=== PATIENT | female | born 1945 | race African-American/Black ===

== ENCOUNTER 2019-05-15 15:41 | Emergency (ER) | payer OTHER ==
[~2019-05-15] VITALS: Ht 160 cm; Wt 86.2 kg
[2019-05-15] MEDS ORDERED: GINSENG100 MG PO (16:10)
[2019-05-15] MEDS ORDERED: NORVASC5 MG PO (16:10)
[2019-05-15 18:29] LABS: ABSOLUTE BASOPHILS 0.1 thou/uL (0.0-0.2); ABSOLUTE EOSINOPHILS 0.1 thou/uL (0.0-0.7); ABSOLUTE MONOCYTES 0.9 thou/uL (0.0-1.2); ABSOLUTE NEUTROPHILS 3.5 thou/uL (1.6-8.1); BASOPHILS 0.9 %; EOSINOPHILS 0.9 %; HEMOGLOBIN 13.2 gm/dL (12.0-15.0); LYMPHOCYTES 30.2 %; MCH 26.5 pg (26.0-34.0); MCHC 32.9 g/dL (28.0-37.0); MCV 80.4 fL (80.0-100.0); MONOCYTES 14.2 %; MPV 9.2 fl. (7.2-11.1); NUCLEATED RBCS 0 /100WBC; PLATELET COUNT* 267 thou/uL (150-400); POLYS 53.8 %; RBC 4.98 mil/uL (4.20-5.00); RDW-CV 14.5 % (10.5-14.5); WBC 6.6 thou/uL (4.0-11.0)
[2019-05-15 18:31] LABS: CALCIUM 8.6 mg/dL (8.5-10.1); CREATININE 0.6 mg/dL (0.6-1.3)
[2019-05-15] MEDS ORDERED: INDOMETHACIN 5050 M1 PO (19:09)
[2019-05-15] MEDS ORDERED: PREDNISONE 10 M10 MG PO (19:09)
[2019-05-15] MEDS ORDERED: NORCO 5-325 TA1 EAC1 PO (19:09)
[2019-05-15 19:24] VITALS: BP 149/63
[2019-05-15 19:34] LABS: ESR (SEDRATE) 39 mm/hr (0-30)
== END 2019-05-15 19:26 | disposition home or self-care (01) ==
LOC: M.ERS 15:41
PROVIDERS: Nurse Practitioner Family
DX: M10.9 Gout, unspecified (principal); I10 Essential (primary) hypertension